=== PATIENT | male | born 1990 ===

== ENCOUNTER 2021-10-13 21:31 | Emergency (ER) | payer SELFPAY ==
[2021-10-13 22:11] LABS: Absolute Lymphocytes (CBC) 1.6 K/uL (0.7-4.9); Basophils % 0.8 % (0-1.3); MPV 9.4 fL (7.6-11.3); RBC Red Blood Cell Count 4.92 M/uL (4.33-5.43)
[2021-10-13 22:20] LABS: Protime INR 1.09
[2021-10-13 22:53] LABS: ALT/SGPT 60 U/L (12-78); AST/SGOT 20 U/L (15-37); Albumin 3.6 g/dL (3.4-5.0); Alkaline Phosphatase 112 U/L (45-117); BUN Blood Urea Nitrogen 16 mg/dL (7-18); Bicarbonate 27 mmol/L (21-32); Bilirubin Direct 0.1 mg/dL (0-0.2); Bilirubin Total 0.6 mg/dL (0.2-1.0); Glucose Level 131 mg/dL (74-106); Potassium 3.8 mmol/L (3.5-5.1); Protein, Total 8.3 g/dL (6.4-8.2); Sodium Level 136 mmol/L (136-145)
[2021-10-13 23:26] LABS: Urine Blood 2+ (Negative); Urine Glucose Negative (Negative); Urine Protein 1+ (Negative); Urine Specific Gravity >=1.030 (1.005-1.030); Urine pH 5.5 (5.0-7.0)
[2021-10-14 00:11] LABS: Barbiturates NEGATIVE (NEGATIVE); Benzodiazepines NEGATIVE (NEGATIVE); Cocaine NEGATIVE (NEGATIVE); METHAMPHETAM POSITIVE (NEGATIVE); Methadone POSITIVE (NEGATIVE); Opiates NEGATIVE (NEGATIVE); Phencyclidine NEGATIVE (NEGATIVE); THC Cannibis NEGATIVE (NEGATIVE)
[2021-10-14 00:56] LABS: Creatine Phosphokinase 153 U/L (39-308)
--- NOTE | 2021-10-14 01:13 | ER ---
Nurse's Notes [facility] Name: Bassam Mcpherson Age: 31 yrs Sex: Male : 1990 Arrival Date: 10/13/2021 Time: 21:33 Bed 3 Private MD: Diagnosis: Methamphetamine abuse Presentation: 10/13 21:38 Chief complaint: Patient states: "I'm normally on Methadone...but I've been using it devon for partying....". Coronavirus screen: Client denies travel out of the [place] in the last 14 days. At this time, the client does not indicate any symptoms associated with coronavirus-19. Ebola Screen: Patient negative for fever greater than or equal to 101.5 degrees Fahrenheit, and additional compatible Ebola Virus Disease symptoms Patient denies exposure to infectious person. Patient denies travel to an Ebola-affected area in the 21 days before illness onset. Initial Sepsis Screen: Does the patient meet any 2 criteria? No. Patient's initial sepsis screen is negative. Initial Sepsis Screen: Does the patient have a suspected source of infection? No. Patient's initial sepsis screen is negative. Risk Assessment: Do you want to hurt yourself or someone else? Patient reports no desire to harm self or others. Onset of symptoms was October 13, 2021. Care prior to arrival: None. Activity prior to arrival: None. 21:38 Method Of Arrival: EMS: [facility] 21:38 Acuity: DIYA 3 devon Triage Assessment: 21:53 General: Appears in no apparent distress. Emotionally labile. General: Behavior is devon cooperative. Pain: Denies pain. Historical: - Allergies: 21:49 No Known Allergies; devon - Home Meds: 21:49 methadone 40 mg Oral TbSO 1 tab once daily for "a wafer and a half every day" [Active]; devon - PMHx: 21:49 None; devon - PSHx: 21:49 None; devon - Immunization history:: "I don't want that". - Social history:: Smoking status: Patient denies any tobacco usage or history of. Patient uses street drugs, heroin, marijuana. - Family history:: Grandfather has/had diabetes, heart disease. - Code Status:: Full code. - Coronavirus screen:: The patient has NOT traveled to [place] in the past 14 days. The patient has NOT had contact with known/suspected case of Coronavirus?. - Ebola Screening: : Patient negative for fever greater than or equal to 101.5 degrees Fahrenheit, and additional compatible Ebola Virus Disease symptoms Patient denies exposure to infectious person Patient denies travel to an Ebola-affected area in the 21 days before illness onset No symptoms or risks identified at this time. Screenin:58 Abuse screen: Denies threats or abuse. Denies injuries from another. Nutritional devon screening: No deficits noted. Tuberculosis screening: No symptoms or risk factors identified. Fall Risk None identified. Assessment: 21:55 General: Appears in no apparent distress. Pt is a little drowsy and responding well. He devon received no Narcan from EMS and reports "Echo", his girlfriend", called EMS, as she was "afraid he was going to and may have had a seizure".. Pain: Denies pain. Neuro: No deficits noted. Respiratory: No deficits noted. GI: No deficits noted. : No deficits noted. EENT: No deficits noted. Derm: No deficits noted. Musculoskeletal: No deficits noted. 22:25 General: Patient is attempting to urinate at this time. He states that he cannot at the devon moment.. 10/14 00:22 Reassessment: Patient appears in no apparent distress at this time. No changes from tw5 previously documented assessment. General: Behavior is drowsy. 01:27 Reassessment: No changes from previously documented assessment. sm5 Psych: 10/13 22:05 [place] Suicide Severity Screening: In the past month, have you wished you were sm5 or wished you could go to sleep and not wake up? Patient responds "No." "I just had a bad night and relapsed" "In the past month, have you actually had any thoughts of killing yourself?" Patient responds "no." "In your lifetime, have you ever done anything, started to do anything, or prepared to do anything to end your life?" Patient responds "no.". Subjective: Delusions are denied, Hallucinations are denied. Objective: Patient is cooperative. Interventions: Patient placed in hospital gown. Safety Checks: Door is open. Patient uses heroin Last use was 1 hours ago. Commitment: n/a. Vital Signs: 21:38 BP 133 / 88; Pulse 85; Resp 12; Pulse Ox 99% on R/A; Weight 99.79 kg; Height 6 ft. 1 devon in. (185.42 cm) (R); 21:54 BP 133 / 88; Pulse 86; Resp 13; Pulse Ox 99% on R/A; devon 22:25 BP 132 / 81; Pulse 95; Resp 14; Pulse Ox 98% on R/A; devon 23:47 Temp 97.3; devon 10/14 00:30 BP 110 / 70; Pulse 79; Resp 16; Pulse Ox 100% on R/A; sm5 01:28 BP 119 / 72; Pulse 76; Resp 17; Pulse Ox 100% on R/A; sm5 10/13 21:38 Body Mass Index 29.03 (99.79 kg, 185.42 cm) devon ED Course: 10/13 21:33 Patient arrived in ED. mw2 21:36 Dl Arnold MD is Attending Physician. [facility] 21:38 Margarita Porter, RN is Primary Nurse. devon 21:44 Triage completed. devon 21:55 Arm band placed on Emesis basin given. devon 21:59 No provider procedures requiring assistance completed. devon 22:05 Acetaminophen Sent. sm5 22:05 Basic Metabolic Panel Sent. sm5 22:05 CBC with Diff Sent. sm5 22:05 ETOH Level Sent. sm5 22:05 Hepatic Function Sent. sm5 22:05 PT-INR Sent. sm5 22:05 Ptt, Activated Sent. sm5 22:05 Salicylate Sent. sm5 22:26 Patient has correct armband on for positive identification. Placed in gown. Bed in low tw5 position. Call light in reach. Side rails up X2. site monitor on. Pulse ox on. NIBP on. Door closed. Noise minimized. Moved to private room. Warm blanket given. Verbal reassurance given. 22:26 Diet: Patient given water. tw5 23:08 No apparent distress. I asked to pray with the pt and he agreed. The pt is much less devon emotionally labile and thanked me. 23:22 Urine Drug Screen Sent. devon 23:22 Straight cath inserted, using sterile technique, Specimen obtained. Pt tolerated. devon 23:39 Urine Drug Screen Sent. tw5 10/14 01:28 IV discontinued, intact, bleeding controlled, No redness/swelling at site. Pressure 5 dressing applied. Administered Medications: No medications were administered Outcome: 01:12 Discharge ordered by . [facility] 01:28 Discharged to home ambulatory, with significant other. [facility] 01:28 Condition: stable 01:28 Discharge instructions given to patient, significant other, Instructed on discharge instructions, follow up and referral plans. Demonstrated understanding of instructions, follow-up care. 01:28 Patient left the ED. [facility] Signatures: Rakesh Main 2 Dl Arnold MD MD 7 Nay Yoon 5 Bria Benito, KACY RN 5 Margarita Porter RN RN devon Corrections: (The following items were deleted from the chart) 10/13 23:13 22:05 URINE DRUG SCREEN+CHEM UR.LAB.BRZ drawn and sent. [facility] EDMS 23:58 23:39 Urine Drug Screen drawn and sent. [facility] EDMS
--- NOTE | 2021-10-14 01:13 | EDPHYS ---
Physician Documentation [facility] Name: Bassam Mcpherson Age: 31 yrs Sex: Male : 1990 Arrival Date: 10/13/2021 Time: 21:33 Bed 3 Private MD: ED Physician Dl Arnold HPI: 10/13 22:04 This 31 yrs old Male presents to ER via EMS with complaints of Drug Abuse. mh7 22:04 The patient presents to the emergency department after a known overdose, a result of 7 recreational substance abuse. Context: Method: it is confirmed or suspected that the patient injected a substance, heroin, Time: today, Extent: it is unknown what amount the patient injected, the OD/poisoning occurred at at home, and was witnessed no one, Psychiatric history: none, Previous OD/poisoning history: yes, Years ago. Associated signs and symptoms: Pertinent positives: decreased level of consciousness, tearfulness, Pertinent negatives: anxiety, apnea, auditory hallucinations, burning of skin, depression, diaphoresis, diarrhea, dizziness, incontinence, nausea, palpitations, shortness of breath, visual hallucinations, vomiting. Severity of symptoms: At their worst the symptoms were moderate today, in the emergency department the symptoms have resolved and did so just prior to arrival. Patient states that he used heroin tonight by injection. He states he has not used in a year and is on methadone but has not taken in a couple days. He states that the using he remembers waking up in bed and paramedics were around him. According to EMS, he was fully awake and alert and without any breathing difficulty or other complaints at the scene.. Historical: - Allergies: 21:49 No Known Allergies; devon - Home Meds: 21:49 methadone 40 mg Oral TbSO 1 tab once daily for "a wafer and a half every day" [Active]; devon - PMHx: 21:49 None; devon - PSHx: 21:49 None; devon - Immunization history:: "I don't want that". - Social history:: Smoking status: Patient denies any tobacco usage or history of. Patient uses street drugs, heroin, marijuana. - Family history:: Grandfather has/had diabetes, heart disease. - Code Status:: Full code. - Coronavirus screen:: The patient has NOT traveled to [place] in the past 14 days. The patient has NOT had contact with known/suspected case of Coronavirus?. - Ebola Screening: : Patient negative for fever greater than or equal to 101.5 degrees Fahrenheit, and additional compatible Ebola Virus Disease symptoms Patient denies exposure to infectious person Patient denies travel to an Ebola-affected area in the 21 days before illness onset No symptoms or risks identified at this time. ROS: 22:04 Constitutional: Negative for fever, chills, and weight loss, Eyes: Negative for injury, mh7 pain, redness, and discharge, ENT: Negative for injury, pain, and discharge, Neck: Negative for injury, pain, and swelling, Cardiovascular: Negative for chest pain, palpitations, and edema, Respiratory: Negative for shortness of breath, cough, wheezing, and pleuritic chest pain, Abdomen/GI: Negative for abdominal pain, nausea, vomiting, diarrhea, and constipation, Back: Negative for injury and pain, : Negative for injury, bleeding, discharge, and swelling, MS/Extremity: Negative for injury and deformity, Skin: Negative for injury, rash, and discoloration, Neuro: Negative for headache, weakness, numbness, tingling, and seizure, Psych: Negative for depression, anxiety, suicide ideation, homicidal ideation, and hallucinations, Allergy/Immunology: Negative for hives, rash, and allergies, Endocrine: Negative for neck swelling, polydipsia, polyuria, polyphagia, and marked weight changes, Hematologic/Lymphatic: Negative for swollen nodes, abnormal bleeding, and unusual bruising. Exam: 22:04 Constitutional: This is a well developed, well nourished patient who is awake, alert, mh7 and in no acute distress. Head/Face: Normocephalic, atraumatic. Eyes: Pupils equal round and reactive to light, extra-ocular motions intact. Lids and lashes normal. Conjunctiva and sclera are non-icteric and not injected. Cornea within normal limits. Periorbital areas with no swelling, redness, or edema. Neck: Trachea midline, no thyromegaly or masses palpated, and no cervical lymphadenopathy. Supple, full range of motion without nuchal rigidity, or vertebral point tenderness. No Meningismus. Chest/axilla: Normal chest wall appearance and motion. Nontender with no deformity. No lesions are appreciated. Cardiovascular: Regular rate and rhythm with a normal S1 and S2. No gallops, murmurs, or rubs. Normal PMI, no JVD. No pulse deficits. Respiratory: Lungs have equal breath sounds bilaterally, clear to auscultation and percussion. No rales, rhonchi or wheezes noted. No increased work of breathing, no retractions or nasal flaring. Abdomen/GI: Soft, non-tender, with normal bowel sounds. No distension or tympany. No guarding or rebound. No evidence of tenderness throughout. Back: No spinal tenderness. No costovertebral tenderness. Full range of motion. Skin: Warm, dry with normal turgor. Normal color with no rashes, no lesions, and no evidence of cellulitis. MS/ Extremity: Pulses equal, no cyanosis. Neurovascular intact. Full, normal range of motion. Neuro: Awake and alert, GCS 15, oriented to person, place, time, and situation. Cranial nerves II-XII grossly intact. Motor strength 5/5 in all extremities. Sensory grossly intact. Cerebellar exam normal. Normal gait. 22:04 Psych: Behavior/mood is cooperative, Affect is calm, Oriented to person, place, time, Patient has no thoughts/intents to harm self or others. Judgement / Insight is normal. Memory is normal. Delusions/hallucinations are not present. Vital Signs: 21:38 BP 133 / 88; Pulse 85; Resp 12; Pulse Ox 99% on R/A; Weight 99.79 kg; Height 6 ft. 1 devon in. (185.42 cm) (R); 21:54 BP 133 / 88; Pulse 86; Resp 13; Pulse Ox 99% on R/A; devon 22:25 BP 132 / 81; Pulse 95; Resp 14; Pulse Ox 98% on R/A; devon 23:47 Temp 97.3; devon 10/14 00:30 BP 110 / 70; Pulse 79; Resp 16; Pulse Ox 100% on R/A; sm5 01:28 BP 119 / 72; Pulse 76; Resp 17; Pulse Ox 100% on R/A; sm5 10/13 21:38 Body Mass Index 29.03 (99.79 kg, 185.42 cm) devon MDM: 01:10 Differential diagnosis: Ingestion/exposure to Heroin polypharmacy, over medication, mh7 hypoglycemia. Data reviewed: vital signs, nurses notes, EMS record, lab test result(s), CBC, drug level(s), acetaminophen, alcohol, salicylate, electrolytes, urine drug screen. Data interpreted: Pulse oximetry: on room air is 98 %. Interpretation: normal. Counseling: I had a detailed discussion with the patient and/or guardian regarding: the historical points, exam findings, and any diagnostic results supporting the discharge/admit diagnosis, lab results, radiology results, the need for outpatient follow up, to return to the emergency department if symptoms worsen or persist or if there are any questions or concerns that arise at home. Response to treatment: the patient's symptoms have resolved after treatment, the patient's blood pressure is in an acceptable range, mental status has returned to baseline, the patient no longer shows bradycardia, the patient is not short of breath, the patient is not tachycardic, the patient's pain is gone, the patient's temperature has normalized. 01:12 Patient medically screened. [facility] 10/13 21:41 Order name: Acetaminophen; Complete Time: 01:05 [facility] 10/13 21:41 Order name: Basic Metabolic Panel; Complete Time: 01:05 [facility] 10/13 21:41 Order name: CBC with Diff; Complete Time: 23:18 [facility] 10/13 21:41 Order name: ETOH Level; Complete Time: 23:18 [facility] 10/13 21:41 Order name: Hepatic Function; Complete Time: 01:05 [facility] 10/13 21:41 Order name: PT-INR; Complete Time: 23:18 [facility] 10/13 21:41 Order name: Ptt, Activated; Complete Time: 23:18 [facility] 10/13 21:41 Order name: Salicylate; Complete Time: 23:18 [facility] 10/13 21:41 Order name: Urine Drug Screen; Complete Time: 00:26 [facility] 10/13 23:14 Order name: Urine Drug Screen sm5 10/13 23:26 Order name: Urine Dipstick-Ancillary; Complete Time: 23:45 [facility] 10/14 00:30 Order name: Creatine Phosphokinase; Complete Time: 01:05 [facility] 10/13 21:41 Order name: EKG; Complete Time: 21:42 [facility] 10/13 21:41 Order name: EKG - Nurse/Tech; Complete Time: 23:10 [facility] 10/13 21:41 Order name: IV Saline Lock; Complete Time: 22:05 [facility] 10/13 21:41 Order name: Labs collected and sent; Complete Time: 22:05 [facility] 10/13 21:41 Order name: Suicide Screening ([place]); Complete Time: 22:09 [facility] 10/13 21:41 Order name: Urine Dipstick-Ancillary (obtain specimen); Complete Time: 23:22 [facility] Administered Medications: No medications were administered Disposition Summary: 10/14/21 01:12 Discharge Ordered Location: Home [facility] Problem: an acute exacerbation [facility] Symptoms: have improved [facility] Condition: Stable [facility] Diagnosis - Methamphetamine abuse [facility] Followup: [facility] - With: Private Physician - When: 1 - 2 days - Reason: Worsening of condition, Recheck today's complaints, Continuance of care, Re-evaluation by your physician Discharge Instructions: - Discharge Summary Sheet [facility] - Methamphetamines Use Disorder [facility] Forms: - Medication Reconciliation Form [facility] - Thank You Letter [facility] - Antibiotic Education [facility] - Prescription Opioid Use [facility] Signatures: Dispatcher [employer] EDDl Barrera MD MD [facility] Margarita Porter RN RN devon Corrections: (The following items were deleted from the chart) 10/13 23:13 21:42 URINE DRUG SCREEN+CHEM UR.LAB.BRZ ordered. EDMS EDMS 23:58 23:15 Urine Drug Screen ordered. [facility]NC EDMS 10/14 00:30 00:27 CREATINE PHOSPHOKINASE+C.LAB.BRZ ordered. [facility]NC EDMS
[2021-10-14 01:43] VITALS: TEMP 97.3
[2021-10-14 01:44] VITALS: O2SAT 100
[2021-10-14 01:46] VITALS: BP 119/72
== END 2021-10-14 01:28 | disposition home or self-care (01) ==
LOC: ER 21:31
DX: F15.10 Other stimulant abuse, uncomplicated (principal)
CPT/HCPCS: 36415; 51702; 80048; 80076; 80307; 80320; 80329; 81003; 82550; 85025; 85610; 85730; 93005; 99284